=== PATIENT | male | born 1940 | race Caucasian/White ===

== ENCOUNTER 2016-03-20 09:58 | Emergency (ER) | payer MEDICARE, BC ==
[2016-03-20 10:23] LABS: #Basophils 0.1 thou/uL (0.0-0.2); #Eosinphils 0.6 thou/uL (0.0-0.7); #Lymphocytes 2.3 thou/uL (1.20-3.40); #Monocytes 1.3 thou/uL (0.11-0.59); #Neutrophils 9.1 thou/uL (1.40-6.50); %Basophils 0.7 % (0.0-1.0); %Eosinophils 4.2 % (0.0-10.0); %Lymphocytes 17.1 % (21.0-51.0); %Monocytes 9.7 % (0.0-10.0); %Neutrophils 68.2 % (42.0-75.0); Hemoglobin 14.7 g/dL (14.0-18.0); Mean Corpuscular HGB CONC 32.3 g/dL (32.0-36.0); Mean Corpuscular Hemoglobin 31.3 pg (27.0-31.0); Mean Corpuscular Volume 96.8 fl (80.0-94.0); Mean Platelet Volume 8.8 fL (7.4-10.4); Platelet Count 248 thou/uL (130-400); RBC Distribution Width 11.7 % (11.5-14.5); Red Blood Cell (RBC) Count 4.69 mill/uL (4.70-6.10); White Blood Cell (WBC) Count 13.4 thou/uL (4.8-10.8)
[2016-03-20] MEDS ORDERED: Lidocaine Viscous Sol 2% 15 ml UD Cup ONE (10:29)
[2016-03-20] MEDS ORDERED: Mag-Al Plus 1200 MG/1200 MG/120 MG/30 ML UDCUP ONE (10:29)
[2016-03-20] MEDS ORDERED: Furosemide 40 MG/4 ML VIAL ONE (10:29)
--- NOTE | 2016-03-20 10:43 | RAD ---
PORTABLE CHEST: Date: 03-20-16 Time: 10:22 a.m. History: Chest pain, shortness of breath. FINDINGS: Comparison made with the exam of 11-11-12. There are changes of median sternotomy. The heart size is borderline. There is pulmonary vascular congestion. No lobar consolidation, pneumothorax or large effusions are seen. IMPRESSION: Findings are suggestive of mild CHF. POS: [facility]
[2016-03-20 10:45] LABS: ALT (SGPT) 43 U/L (0-55); AST (SGOT) 26 U/L (5-34); Albumin 4.2 g/dL (3.4-4.8); Alkaline Phosphatase 121 U/L (40-150); Anion Gap 18 mmol/L (10-20); BUN (Urea Nitrogen) 15 mg/dL (8.4-25.7); Bilirubin, Total 0.7 mg/dL (0.2-1.2); Calc. Creatinine Clearance 0 mL/min (70-130); Carbon Dioxide 23 mmol/L (23-31); Chloride 100 mmol/L (98-107); Estimated GFR-MDRD 68; Globulin 3.1 g/dL (2.4-3.5); Glucose 125 mg/dL (83-110); Potassium 4.2 mmol/L (3.5-5.1); Protein, Total 7.3 g/dL (5.8-8.1); Sodium 137 mmol/L (136-145)
[2016-03-20 10:47] LABS: CKMB 2.4 ng/mL (0-6.6); Troponin I Less than 0.010 ng/mL (< 0.028)
--- NOTE | 2016-03-20 11:30 | ERRECORD ---
[facility] EMERGENCY RECORD HPI CHEST PAIN (10:12 SHAN) CHIEF COMPLAINT: Patient presents for evaluation of chest pain, ongoing. HISTORIAN: History provided by patient, patient relates shortness of breath yesterday, gone now, then vague central chest pain for about 90 minutes this am. QUALITY: Pain is dull in nature. SEVERITY: Maximum severity of symptoms mild, Currently symptoms are mild. TIME COURSE: Gradual onset of symptoms. ASSOCIATED WITH: No associated symptoms. EXACERBATED BY: Patient's condition exacerbated by nothing. RELIEVED BY: Patient's condition relieved by nothing. ROS (10:13 SHAN) CONSTITUTIONAL: Negative constitutional review of systems, Historian denies chills, denies fever. EYES: Negative eye review of systems. ENT: Negative ears, nose, throat review of systems. CARDIOVASCULAR: Negative cardiovascular review of systems, Historian relates dull chest pain, Historian denies palpitations. RESPIRATORY: Negative respiratory review of systems, Historian denies cough, denies shortness of breath. GI: Negative gastrointestinal review of systems, Historian denies abdominal pain, denies constipation, denies diarrhea. MUSCULOSKELETAL: Negative musculoskeletal review of systems. SKIN: Negative skin review of systems. NEUROLOGIC: Negative neurologic review of systems. ENDOCRINE: Negative endocrine review of systems. HEMO/LYMPHATIC: Normal hematologic/lymphatic system review. PSYCHIATRIC: Negative psychiatric review of systems. NOTES: All other ROS is negative except as listed in HPI. PAST MEDICAL HISTORY MEDICAL HISTORY: Past medical history includes cardiac history, myocardial infarction, Past medical history includes history of diabetes, Type II, Past medical history includes history of hyperlipidemia, high cholesterol. (11:03 YORDY) MALE SURGICAL HISTORY: Surgical history of coronary artery bypass graft surgery, three vessels. (11:03 YORDY) PSYCHIATRIC HISTORY: No previous psychiatric history, no previous inpatient psychiatric admissions. (11:03 YORDY) SOCIAL HISTORY: Patient denies alcohol use, Patient denies drug use, Patient has no smoking history. (11:03 YORDY) NOTES: I have reviewed and agree with the PMH/PSxH/FamHx/SocHx obtained by the nurse. (10:13 SHAN) KNOWN ALLERGIES &a-1R&a+25V*p+0X*q2327X*c152B*c15G*c2P*p-0X&a-25V&a+1RName: Rubens Tomlinson : M75 MedRec: [id number] AcctNum: [id number] Prepared: ThuMar 20, 2016 11:50 by Interface Page 1 of 4 pMD [facility] EMERGENCY RECORD Crestor: Reaction: Nausea, Severity: Mild CURRENT MEDICATIONS aspirin: TABLET : Strength - 81 mg : ORAL Patient Dose: 81 mg Oral once a day. (10:20 YORDY) lisinopril: TABLET : Strength - 20 mg : ORAL Patient Dose: 20 mg Oral once a day. (10:20 YORDY) atorvastatin: TABLET : Strength - 80 mg : ORAL Patient Dose: 80 mg Oral once a day (in the evening). (10:21 YORDY) meTOPROLOL tartrate: TABLET : Strength - 25 mg : ORAL Patient Dose: 25 mg Oral once a day. (10:22 YORDY) VITAL SIGNS VITAL SIGNS: BP: 147/59, Pulse: 52, Resp: 20, Pain: 1, O2 sat: 98 on Room Air, Time: 03/20/2016 10:03. (10:03 YORDY) BP: 143/57, Pulse: 61, Resp: 18, Pain: 0.5, O2 sat: 98 on Room Air, Time: 03/20/2016 10:36. (10:36 YORDY) BP: 143/67, Pulse: 58, Resp: 16, Pain: 0, O2 sat: 94 on Room Air, Time: 03/20/2016 11:04. (11:04 YORDY) Temp: 98.2 (Oral), Time: 03/20/2016 10:05. (10:05 YORDY) PHYSICAL EXAM (10:13 SHAN) CONSTITUTIONAL: Vital signs reviewed, Patient appears non toxic, Patient alert and oriented to person, place and time, Pt is in no apparent distress. HEAD: Head exam included findings of head atraumatic, normocephalic. EYES: Eye exam included findings of eyelids normal to inspection, Pupils equally round and reactive to light, Extraocular muscles intact. ENT: ENT exam normal, Nose exam normal, no nasal deformity, no bleeding from nares, Pharynx exam normal, Mouth exam normal, mucous membranes moist. NECK: Neck exam included findings of normal range of motion, Trachea midline. RESPIRATORY CHEST: Respiratory and chest exam normal, Breath sounds clear, No wheezing, No rales, Chest exam included findings of chest movement symmetrical, Chest expansion equal. CARDIOVASCULAR: Cardiovascular assessment normal, Cardiovascular exam included findings of heart rate being irregular rate and rhythm, Heart sounds normal. ABDOMEN MALE: Abdominal exam included findings of abdomen nontender, Bowel sounds normal, no mass, no pulsatile masses, no peritoneal signs, no rigidity, no guarding, no rebound. BACK: Back exam included findings of normal inspection, range of motion normal, no costovertebral angle tenderness. &a-1R&a+25V*p+0X*[id number]*c152B*c15G*c2P*p-0X&a-25V&a+1RName: Rubens Tomlinson : M75 MedRec: [id number] AcctNum: [id number] Prepared: [facility] Mar 20, 2016 11:50 by Interface Page 2 of 4 pMD [facility] EMERGENCY RECORD UPPER EXTREMITY: Upper extremity exam included findings of inspection normal, Range of motion normal. LOWER EXTREMITY: Lower extremity exam included findings of inspection normal, Range of motion normal, One plus edema in legs. NEURO: Neuro exam findings include patient oriented to person, place and time, Speech normal, no focal motor deficits, no focal sensory deficits. SKIN: Skin exam included findings of skin warm, dry, and normal in color. LYMPHATIC: Lymphatic exam normal. PSYCHIATRIC: Psychiatric exam included findings of patient oriented to person place and time, Normal affect. MEDICATION ADMINISTRATION SUMMARY Drug Name: fentaNYL (PF) intravenous, Dose Ordered: 100 mcg, Route: IV Push, Status: Canceled, Time: 10:28 03/20/2016, Drug Name: *Nitrostat sublingual, Dose Ordered: 0.4 mg, Route: Sublingual, Status: Canceled, Time: 10:28 03/20/2016, Drug Name: furosemide injection, Dose Ordered: 40 mg, Route: IV Push, Status: Given, Time: 10:35 03/20/2016, Drug Name: GI COCKTAIL, Dose Ordered: 40 mL, Route: Oral, Status: Given, Time: 10:32 03/20/2016, *Additional information available in notes, Detailed record available in Medication Service section. DOCTOR NOTES TEXT: Adult male with hx of diabetes, hypertension, prior mi and cabg; developed mild chest starting about 1 hr prior to arrival. Has 1 to 2 plus edema in legs; ekg and monitor show atrial flutter but with mildly bradycardic rate. Chest pain related by patient to be very mild. Already took his aspirin. 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 flutter was not there in the past. Discussed with Dr. Boateng in ER at [place] who will accept. Discussed with patient. Will transfer accordingly. At this time, pain is gone, breathing is better, has been urinating with the Lasix dose. Will need the flutter addressed. (11:15 SHAN) PATIENT PLAN: The patient requires a transfer and will be transferred, per patient request. (11:15 SHAN) DATA REVIEWED: Lab data reviewed, Xray data reviewed, Reviewed EKG. (11:15 SHAN) PROBLEM LIST No recorded problems DIAGNOSIS (11:18 SHAN) FINAL: PRIMARY: Atrial Flutter, ADDITIONAL: cad, hypertension, diabetes, chest pain--resolved., CHF, hx of cabg. PRESCRIPTION No recorded prescriptions &a-1R&a+25V*p+0X*[id number]*c152B*c15G*c2P*p-0X&a-25V&a+1RName: Rubens Tomlinson [place] [facility] [place] [id number] AcctNum: [id number] Prepared: ThuMar 20, 2016 11:50 by Interface Page 3 of 4 pMD [facility] EMERGENCY RECORD DISPOSITION PATIENT: Disposition Type: Transfer, Disposition: Transfer to [facility]. (11:18 BISI) Patient left the department. (11:43 YORDY) Mcrae: YORDY=EL Pineda, Twyla MATHEWS=MD Sheba, Andre &a-1R&a+25V*p+0X*[id number]*c152B*c15G*c2P*p-0X&a-25V&a+1RName: Rubens Tomlinson: M75 MedRec: [id number] AcctNum: [id number] Prepared: ThuMar 20, 2016 11:50 by Interface Page 4 of 4 pMD [facility]
--- NOTE | 2016-03-20 11:33 | PICIS ---
[facility] EMERGENCY RECORD TRIAGE (10:01 YORDY) TRIAGE NOTES: SOB and chest pain since yesterday. (10:01 YORDY) PATIENT: NAME: Rubens Tomlinson, AGE: 75, GENDER: male, : [id number], TIME OF GREET: ThuMar 20, 2016 09:59, PREFERRED LANGUAGE: French, ETHNICITY: Not or , ECODE BILLING MAP: [facility], SSN: [id number], Zip Code: [address], KG WEIGHT: 95.25, PHONE: CELL, , , PERSON ID: [id number], PCP: MD Hercules Grover. (10: YORDY) COMPLAINT: SOB/CHEST PAIN/TIGHT IN CHEST. (10:01 YORDY) ADMISSION: URGENCY: 2 Emergent, ADMISSION SOURCE: Home, TRANSPORT: Walk-in, BED: ED -01. 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 (11:03 YORDY) PAIN: Location tightness in the chest. (11:03 YORDY) SIRS SCORING: Heart Rate 55-109 (0), Temp range 96.8-101.1 (0), respiratory rate 12-24 (0). (11:03 YORDY) TRIAGE SCREENING: Patient denies suicidal ideation, Patient denies presence of domestic violence. (11:03 YORDY) PROVIDERS: TRIAGE NURSE: Twyla Pineda RN. (10:01 YORDY) PREVIOUS VISIT ALLERGIES: Crestor. (10: YORDY) Crestor. (11:03 YORDY) KNOWN ALLERGIES Crestor: Reaction: Nausea, Severity: Mild CURRENT MEDICATIONS aspirin: TABLET : Strength - 81 mg : ORAL Patient Dose: 81 mg Oral once a day. (10:20 YORDY) lisinopril: TABLET : Strength - 20 mg : ORAL Patient Dose: 20 mg Oral once a day. (10:20 YORDY) atorvastatin: TABLET : Strength - 80 mg : ORAL Patient Dose: 80 mg Oral once a day (in the evening). (10:21 YORDY) meTOPROLOL tartrate: TABLET : Strength - 25 mg : ORAL Patient Dose: 25 mg Oral once a day. (10:22 YORDY) VITAL SIGNS VITAL SIGNS: BP: 147/59, Pulse: 52, Resp: 20, Pain: 1, O2 sat: 98 on Room Air, Time: 03/20/2016 10:03. (10:03 YORDY) BP: 143/57, Pulse: 61, Resp: 18, Pain: 0.5, O2 sat: 98 on Room Air, Time: 03/20/2016 10:36. (10:36 YORDY) BP: 143/67, Pulse: 58, Resp: 16, Pain: 0, O2 sat: 94 on Room Air, Time: 03/20/2016 11:04. (11:04 YORDY) Temp: 98.2 (Oral), Time: 03/20/2016 10:05. (10:05 YORDY) &a-1R&a+25V*p+0X*l8005B*c152B*c15G*c2P*p-0X&a-25V&a+1RName: Rubens Tomlinson : 9 M75 MedRec: [id number] AcctNum: [id number] Prepared: Cecile Mar 20, 2016 11:51 by Interface Page 1 of 10 pMD [facility] EMERGENCY RECORD NURSING ASSESSMENT: CARDIOVASCULAR (10:10 YORDY) CONSTITUTIONAL: Patient arrives ambulatory, Gait steady, History obtained from patient, Patient appears comfortable, Patient cooperative, Patient alert, Oriented to person, place and time, Skin warm, Skin dry, Skin normal in color, Mucous membranes pink, Mucous membranes moist, Patient is well-groomed, Patient arrived to ED come shortness of breath that started 2-3 days ago and 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 PAIN: substernal. CARDIOVASCULAR: Cardiovascular assessment findings include heart rate normal, Heart rhythm, atrial flutter, Heart sounds normal. RESPIRATORY/CHEST: Breath sounds clear, Respiratory assessment findings include respiratory effort easy, Respirations regular, Conversing normally, Neck and chest exam findings include trachea midline, Chest expansion equal, Chest movement symmetrical. SAFETY: Side rails up, Cart/Stretcher in lowest position, Call light within reach, Hospital ID band on. NURSING ASSESSMENT: FALL RISK (11:10 YORDY) FALL RISK: Fall risk assessment findings include: no history of falls (0), No bed rest greater than 2 days (0), No use of level of consciousness altering agents with mentation or cognitive changes (0), No change in blood pressure (0), No sensory deficits (0), No impaired mobility (0), No neurologic diagnosis (0), No elimination problems (0), No confusion (0), Total score 0. NURSING ASSESSMENT: SKIN (11:10 YORDY) SKIN: Skin assessment findings include skin warm, Skin dry, Skin normal in color. JOMAR SCALE: (4) Sensory perception has no impairment, (4) Skin is rarely moist, (4) Patient walks frequently, (4) No mobility limitations, (3) Adequate nutrition, (3) Patient has no apparent problem moving, Jomar Risk Total: 22. SAFETY: Side rails up, Cart/Stretcher in lowest position, Call light within reach, Hospital ID band on. NURSING PROCEDURE: SALESPERSON AUTOMOBILES (10:03 YORDY) PATIENT IDENTIFIER: Patient actively involved in identification process, Patient's identity verified by patient stating name, Patient's identity verified by patient stating date, Patient's identity verified by hospital ID bracelet. SALESPERSON AUTOMOBILES: Cardiac monitoring indicated for complaint of chest pain, Patient placed on tipple tender, Patient placed on non-invasive blood pressure monitor, with disposable blood pressure cuff applied, Patient placed on continuous pulse oximetry, Adult/pediatric oxisensor applied, Oxygen saturation 98%. SAFETY: Side rails up, Cart/Stretcher in lowest position, Call light within reach, Hospital ID band on. &a-1R&a+25V*p+0X*s2736J*c152B*c15G*c2P*p-0X&a-25V&a+1RName: Rubens Tomlinson : M75 MedRec: [id number] AcctNum: [id number] Prepared: Cecile Mar 20, 2016 11:51 by Interface Page 2 of 10 D [facility] EMERGENCY RECORD NURSING PROCEDURE: EKG CHART (10:05 YORDY) PATIENT IDENTIFIER: Patient actively involved in identification process, Patient's identity verified by patient stating name, Patient's identity verified by patient stating date, Patient's identity verified by hospital ID bracelet. EKG: EKG indicated for complaint of chest pain, 12 lead EKG performed on the left chest, done by EL Wakefield, first EKG. FOLLOW-UP: After procedure, EKG for interpretation given to Dr. Scruggs. SAFETY: Side rails up, Cart/Stretcher in lowest position, Call light within reach, Hospital ID band on. NURSING PROCEDURE: IV (10:06 YORDY) PATIENT IDENITIFIER: Patient actively involved in identification process, Patient's identity verified by patient stating name, Patient's identity verified by patient stating date, Patient's identity verified by hospital ID bracelet. IV SITE 1: IV therapy indicated for hydration, IV therapy indicated for medication administration, IV established, to the left wrist, using a 20 gauge catheter, Saline lock established, Flushed with normal saline (mls): 10, Labs drawn at time of placement, labeled in the presence of the patient and sent to lab. FOLLOW-UP SITE 1: After procedure, sterile transparent dressing applied, After procedure, no drainage at IV site, After procedure, no swelling at IV site, After procedure, no redness at IV site. SAFETY: Side rails up, Cart/Stretcher in lowest position, Call light within reach, Hospital ID band on. NURSING PROCEDURE: TRANSFER (11:40 YORDY) TRANSFER: Reason for transfer need for specialized care, Diagnosis: Aflutter, Accepting institution: [facility], Accepting physician: Cortney, Referring physician: Sheba, Transported by non-urgent ambulance, accompanied by emergency medical services personnel, Copy of patient record prepared for receiving facility, Copy of diagnostic studies, Patient consent for transfer signed, Family member contacted, girlfriend at bedside. BELONGINGS: Belongings and valuables with patient upon arrival to the Emergency Department include:, Belongings and valuables with patient at time of discharge include:, Belongings remain with patient, Valuables remain with patient. SAFETY: Side rails up, Cart/Stretcher in lowest position, Family at bedside, Call light within reach, Hospital ID band on. ORDER DETAILS Order Name: B type Natriuretic Peptide, Status: Active, Time: 10:10 03/20/2016, User: BISI, - Ordered for: MD Scruggs Stanley, - Entered by: MD Scruggs Stanley - [facility] Mar 20, 2016 10:10, - Quantity: 1, Order Name: SALESPERSON AUTOMOBILES ED, Status: Done, Time: 10:17 03/20/2016, &a-1R&a+25V*p+0X*q5319V*c152B*c15G*c2P*p-0X&a-25V&a+1RName: Rubens Tomlinson : M75 MedRec: [id number] AcctNum: [id number] Prepared: ThuMar 20, 2016 11:51 by Interface Page 3 of 10 pMD [facility] EMERGENCY RECORD User: YORDY, - Ordered for: MD Scruggs Stanley, - Entered by: MD Scruggs Stanley - ThuMar 20, 2016 10:10, - Quantity: 1, Order Name: Cardiac Profile w/CKMB & Troponin - I, Status: Active, Time: 10:10 03/20/2016, User: BISI, - Ordered for: MD Scruggs Stanley, - Entered by: MD Scruggs Stanley - ThuMar 20, 2016 10:10, - Quantity: 1, Order Name: CBC with Differential, Status: Active, Time: 10:10 03/20/2016, User: BISI, - Ordered for: MD Scruggs Stanley, - Entered by: MD Scruggs Stanley - ThuMar 20, 2016 10:10, - Quantity: 1, Order Name: Comprehensive Metabolic Panel, Status: Active, Time: 10:10 03/20/2016, User: BISI, - Ordered for: MD Scruggs Stanley, - Entered by: MD Scruggs Stanley - ThuMar 20, 2016 10:10, - Quantity: 1, Order Name: D-Dimer (Quantitative), Status: Active, Time: 10:10 03/20/2016, User: BISI, - Ordered for: MD Scruggs Stanley, - Entered by: MD Scruggs Stanley - ThuMar 20, 2016 10:10, - Quantity: 1, Order Name: EKG 12 Lead in Emergency Room, Status: Active, Time: 10:10 03/20/2016, User: BISI, - Ordered for: MD Scruggs Stanley, - Entered by: MD Scruggs Stanley - ThuMar 20, 2016 10:10, - Quantity: 1, Order Name: ERRT Oxygen Usage ER, Status: Active, Time: 10:15 03/20/2016, User: BISI, - Ordered for: MD Scruggs Stanley, - Entered by: MD Scruggs Stanley - Cecile Mar 20, 2016 10:15, - Quantity: 1, Order Name: SALINE LOCK, Status: Done, Time: 10:17 03/20/2016, User: YORDY, - Ordered for: MD Scruggs Stanley, - Entered by: MD Scruggs Stanley - Cecile Mar 20, 2016 10:10, - Quantity: 1, Order Name: XR Chest 1 View Portable, Status: Active, Time: 10:10 03/20/2016, User: BISI, - Ordered for: MD Scruggs Stanley, - Entered by: MD Scruggs Stanley - Cecile Mar 20, 2016 10:10, - Quantity: 1. MEDICATION ADMINISTRATION SUMMARY Drug Name: fentaNYL (PF) intravenous, Dose Ordered: 100 mcg, Route: IV Push, Status: Canceled, Time: 10:28 03/20/2016, Drug Name: *Nitrostat sublingual, Dose Ordered: 0.4 mg, Route: Sublingual, Status: Canceled, Time: 10:28 03/20/2016, &a-1R&a+25V*p+0X*u8498E*c152B*c15G*c2P*p-0X&a-25V&a+1RName: Rubens Tomlinson : M75 MedRec: [id number] AcctNum: [id number] Prepared: ThuMar 20, 2016 11:51 by Interface Page 4 of 10 pMD [facility] EMERGENCY RECORD Drug Name: furosemide injection, Dose Ordered: 40 mg, Route: IV Push, Status: Given, Time: 10:35 03/20/2016, Drug Name: GI COCKTAIL, Dose Ordered: 40 mL, Route: Oral, Status: Given, Time: 10:32 03/20/2016, *Additional information available in notes, Detailed record available in Medication Service section. MEDICATION SERVICE furosemide injection: Order: furosemide injection (furosemide) - Dose: 40 mg : IV Push Schedule: Now Ordered by: Andre Scruggs MD Entered by: Andre Scruggs MD [facility] Mar 20, 2016 10:19 , Acknowledged by: Twyla Pineda RN [facility] Mar 20, 2016 10:23 Documented as given by: Twyla Pineda RN [facility] Mar 20, 2016 10:35 Patient, Medication, Dose, Route and Time verified prior to administration. IV SITE #1 IVP, initial medication, Slowly, Catheter placement confirmed via flush prior to administration, IV site without signs or symptoms of infiltration during medication administration, No swelling during administration, No drainage during administration, IV flushed after administration, Correct patient, time, route, dose and medication confirmed prior to administration, Patient advised of actions and side-effects prior to administration, Allergies confirmed and medications reviewed prior to administration, Patient in position of comfort, Side rails up, Cart in lowest position. GI COCKTAIL: Order: GI COCKTAIL - Dose: 40 mL : Oral Lidocaine Viscous (lidocaine HCl) [10 mL] MAG-AL (magnesium hydroxide/aluminum hydroxide) [30 mL] Ordered by: Andre Scruggs MD Entered by: Andre Scruggs MD [facility] Mar 20, 2016 10:18 , Acknowledged by: Twyla Pineda RN [facility] Mar 20, 2016 10:19 Documented as given by: Twyla Pineda RN [facility] Mar 20, 2016 10:32 Patient, Medication, Dose, Route and Time verified prior to administration. Site: Medication administered P.O., Correct patient, time, route, dose and medication confirmed prior to administration, Patient advised of actions and side-effects prior to administration, Allergies confirmed and medications reviewed prior to administration, Patient in position of comfort, Side rails up, Cart in lowest position. (CANCELED) fentaNYL (PF) intravenous: Order: fentaNYL (PF) intravenous (fentanyl citrate/preservative free) - Dose: 100 mcg : IV Push Schedule: Now Ordered by: Andre Scruggs MD Entered by: Andre Scruggs MD [facility] Mar 20, 2016 10:20 , Acknowledged by: Twyla Pineda RN [facility] Mar 20, 2016 10:23 Canceled by: Andre Scruggs MD. [facility] Mar 20, 2016 10:28 Cancel reason: Change in medication plan. (CANCELED) Nitrostat sublingual: Order: Nitrostat sublingual (nitroglycerin) - Dose: 0.4 mg : Sublingual &a-1R&a+25V*p+0X*y9921I*c152B*c15G*c2P*p-0X&a-25V&a+1RName: Rubens Tomlinson : M75 MedRec: [id number] AcctNum: [id number] Prepared: ThuMar 20, 2016 11:51 by Interface Page 5 of 10 pMD [facility] EMERGENCY RECORD Schedule: Now Notes: may repeat up to 2 times if needed for chest pain Ordered by: Andre Scruggs MD Entered by: Andre Scruggs MD [facility] Mar 20, 2016 10:17 , Acknowledged by: Twyla Pineda RN [facility] Mar 20, 2016 10:19 Canceled by: Andre Scruggs MD. [facility] Mar 20, 2016 10:28 Cancel reason: Change in medication plan:very minimal symptoms. HPI CHEST PAIN (10:12 SHAN) CHIEF COMPLAINT: Patient presents for evaluation of chest pain, ongoing. HISTORIAN: History provided by patient, patient relates shortness of breath yesterday, gone now, then vague central chest pain for about 90 minutes this am. QUALITY: Pain is dull in nature. SEVERITY: Maximum severity of symptoms mild, Currently symptoms are mild. TIME COURSE: Gradual onset of symptoms. ASSOCIATED WITH: No associated symptoms. EXACERBATED BY: Patient's condition exacerbated by nothing. RELIEVED BY: Patient's condition relieved by nothing. ROS (10:13 SHAN) CONSTITUTIONAL: Negative constitutional review of systems, Historian denies chills, denies fever. EYES: Negative eye review of systems. ENT: Negative ears, nose, throat review of systems. CARDIOVASCULAR: Negative cardiovascular review of systems, Historian relates dull chest pain, Historian denies palpitations. RESPIRATORY: Negative respiratory review of systems, Historian denies cough, denies shortness of breath. GI: Negative gastrointestinal review of systems, Historian denies abdominal pain, denies constipation, denies diarrhea. MUSCULOSKELETAL: Negative musculoskeletal review of systems. SKIN: Negative skin review of systems. NEUROLOGIC: Negative neurologic review of systems. ENDOCRINE: Negative endocrine review of systems. HEMO/LYMPHATIC: Normal hematologic/lymphatic system review. PSYCHIATRIC: Negative psychiatric review of systems. NOTES: All other ROS is negative except as listed in HPI. PAST MEDICAL HISTORY MEDICAL HISTORY: Past medical history includes cardiac history, myocardial infarction, Past medical history includes history of diabetes, Type II, Past medical history includes history of hyperlipidemia, high cholesterol. (11:03 YORDY) MALE SURGICAL HISTORY: Surgical history of coronary artery &a-1R&a+25V*p+0X*v4412U*c152B*c15G*c2P*p-0X&a-25V&a+1RName: Rubens Tomlinson : M75 MedRec: [id number] AcctNum: [id number] Prepared: Cecile Mar 20, 2016 11:51 by Interface Page 6 of 10 pMD [facility] EMERGENCY RECORD bypass graft surgery, three vessels. (11:03 YORDY) PSYCHIATRIC HISTORY: No previous psychiatric history, no previous inpatient psychiatric admissions. (11:03 YORDY) SOCIAL HISTORY: Patient denies alcohol use, Patient denies drug use, Patient has no smoking history. (11:03 YORDY) NOTES: I have reviewed and agree with the PMH/PSxH/FamHx/SocHx obtained by the nurse. (10:13 SHAN) PHYSICAL EXAM (10:13 SHAN) CONSTITUTIONAL: Vital signs reviewed, Patient appears non toxic, Patient alert and oriented to person, place and time, Pt is in no apparent distress. HEAD: Head exam included findings of head atraumatic, normocephalic. EYES: Eye exam included findings of eyelids normal to inspection, Pupils equally round and reactive to light, Extraocular muscles intact. ENT: ENT exam normal, Nose exam normal, no nasal deformity, no bleeding from nares, Pharynx exam normal, Mouth exam normal, mucous membranes moist. NECK: Neck exam included findings of normal range of motion, Trachea midline. RESPIRATORY CHEST: Respiratory and chest exam normal, Breath sounds clear, No wheezing, No rales, Chest exam included findings of chest movement symmetrical, Chest expansion equal. CARDIOVASCULAR: Cardiovascular assessment normal, Cardiovascular exam included findings of heart rate being irregular rate and rhythm, Heart sounds normal. ABDOMEN MALE: Abdominal exam included findings of abdomen nontender, Bowel sounds normal, no mass, no pulsatile masses, no peritoneal signs, no rigidity, no guarding, no rebound. BACK: Back exam included findings of normal inspection, range of motion normal, no costovertebral angle tenderness. UPPER EXTREMITY: Upper extremity exam included findings of inspection normal, Range of motion normal. LOWER EXTREMITY: Lower extremity exam included findings of inspection normal, Range of motion normal, One plus edema in legs. NEURO: Neuro exam findings include patient oriented to person, place and time, Speech normal, no focal motor deficits, no focal sensory deficits. SKIN: Skin exam included findings of skin warm, dry, and normal in color. LYMPHATIC: Lymphatic exam normal. PSYCHIATRIC: Psychiatric exam included findings of patient oriented to person place and time, Normal affect. EVENTS TRANSFER: Triage to Emergency Main ED -01. (ThuMar 20, 2016 10:01 YORDY) Removed from Emergency Main ED -01. (11:43 YORDY) &a-1R&a+25V*p+0X*n9373O*c152B*c15G*c2P*p-0X&a-25V&a+1RName: Rubens Tomlinson : M75 MedRec: [id number] AcctNum: [id number] Prepared: ThuMar 20, 2016 11:51 by Interface Page 7 of 10 pMD [facility] EMERGENCY RECORD DOCTOR NOTES TEXT: Adult male with hx of diabetes, hypertension, prior mi and cabg; developed mild chest starting about 1 hr prior to arrival. Has 1 to 2 plus edema in legs; ekg and monitor show atrial flutter but with mildly bradycardic rate. Chest pain related by patient to be very mild. Already took his aspirin. (10:29 SHAN) Discuss with Dr. Patel, tube tester, sabine bland was not there in the past. Discussed with Dr. Boateng in ER at [place] who will accept. Discussed with patient. Will transfer accordingly. At this time, pain is gone, breathing is better, has been urinating with the Lasix dose. Will need the flutter addressed. (11:15 SHAN) PATIENT PLAN: The patient requires a transfer and will be transferred, per patient request. (11:15 SHAN) DATA REVIEWED: Lab data reviewed, Xray data reviewed, Reviewed EKG. (11:15 SHAN) PROBLEM LIST No recorded problems DIAGNOSIS (11:18 SHAN) FINAL: PRIMARY: Atrial Flutter, ADDITIONAL: cad, hypertension, diabetes, chest pain--resolved., CHF, hx of cabg. DISPOSITION PATIENT: Disposition Type: Transfer, Disposition: Transfer to [facility]. (11:18 SHAN) Patient left the department. (11:43 YORDY) PRESCRIPTION No recorded prescriptions IMAGING *EKG: Image captured from scanner. (11:22 JPAR) *MEMORANDUM OF TRANSFER: Image captured from scanner. (11:36 LWAL) EMS TRANSPORT ORDERS: Image captured from scanner. (11:36 LWAL) CONSENTS: Image captured from scanner. (11:36 LWAL) TRANSFER QI WORKSHEET: Image captured from scanner. (11:36 LWAL) Page 2 added. Image captured from scanner. (11:37 LWAL) *SUPPLY CHARGE SHEET: Image captured from scanner. (11:42 YORDY) ADMIN (11:18 SHAN) DIGITAL SIGNATURE: MD Scruggs Stanley. RESULTS RADIOLOGY: XR Chest 1 View Portable Observe DT: ThuMar 20, 2016 10:12, CXRP PORTABLE CHEST: &a-1R&a+25V*p+0X*x6472A*c152B*c15G*c2P*p-0X&a-25V&a+1RName: Rubens Tomlinson : M75 MedRec: [id number] AcctNum: [id number] Prepared: ThuMar 20, 2016 11:51 by Interface Page 8 of 10 D [facility] EMERGENCY RECORD Date: 03-20-16 Time: 10:22 a.m. History: Chest pain, shortness of breath. FINDINGS: Comparison made with the exam of 11-11-12. There are changes of median sternotomy. The heart size is borderline. There is pulmonary vascular congestion. No lobar consolidation, pneumothorax or large effusions are seen. IMPRESSION: Findings are suggestive of mild CHF. POS: [facility] . (10:51 BISI) LABORATORY: CBC with Differential Collection DT: ThuMar 20, 2016 10:18, *White Blood Cell (WBC) Count 13.4 - H thou/uL, Range (4.8-10.8), *Red Blood Cell (RBC) Count 4.69 - L mill/uL, Range (4.70-6.10), Hemoglobin 14.7 g/dL, Range (14.0-18.0), Hematocrit 45.4 %, Range (42.0-52.0), *Mean Corpuscular Volume 96.8 - H fl, Range (80.0-94.0), *Mean Corpuscular Hemoglobin 31.3 - H pg, Range (27.0-31.0), Mean Corpuscular HGB CONC 32.3 g/dL, Range (32.0-36.0), RBC Distribution Width 11.7 %, Range (11.5-14.5), Platelet Count 248 thou/uL, Range (130-400), Mean Platelet Volume 8.8 fL, Range (7.4-10.4), %Neutrophils 68.2 %, Range (42.0-75.0), *%Lymphocytes 17.1 - L %, Range (21.0-51.0), %Monocytes 9.7 %, Range (0.0-10.0), %Eosinophils 4.2 %, Range (0.0-10.0), %Basophils 0.7 %, Range (0.0-1.0), *#Neutrophils 9.1 - H thou/uL, Range (1.40-6.50), #Lymphocytes 2.3 thou/uL, Range (1.20-3.40), *#Monocytes 1.3 - H thou/uL, Range (0.11-0.59), #Eosinphils 0.6 thou/uL, Range (0.0-0.7), #Basophils 0.1 thou/uL, Range (0.0-0.2). (10:34 BISI) D-Dimer (Quantitative) Collection DT: ThuMar 20, 2016 10:18, D-Dimer Test 0.29 *mcg/mL, Range (0.27-0.43), * Reference Range Units: mcg/mL of fibrinogen equivalent, units(FEU) Based upon a retrospective study of [facility] patients in June 2005, a result of Less than 0.44 mcg/mL FEU is, predictive of the absence of a DVT or PE. . (10:42 BISI) Comprehensive Metabolic Panel Collection DT: ThuMar 20, 2016 10:18, &a-1R&a+25V*p+0X*n5171A*c152B*c15G*c2P*p-0X&a-25V&a+1RName: Rubens Tomlinson : M75 MedRec: [id number] AcctNum: [id number] Prepared: [facility] Mar 20, 2016 11:51 by Interface Page 9 of 10 pMD [facility] EMERGENCY RECORD Sodium 137 mmol/L, Range (136-145), Potassium 4.2 mmol/L, Range (3.5-5.1), Chloride 100 mmol/L, Range (98-107), Carbon Dioxide 23 mmol/L, Range (23-31), Anion Gap 18 mmol/L, Range (10-20), BUN (Urea Nitrogen) 15 mg/dL, Range (8.4-25.7), Creatinine 1.06 mg/dL, Range (0.7-1.3), Estimated GFR-MDRD 68 , Reference Range for Estimated GFR: Greater than 90, mL/min/1.73 m2 NOTE: The MDRD equation has not been validated for use, with the elderly (over 70 years of age), women, patients with, serious comorbid condition or persons with extremes of body size, muscle, mass, or nutritional status. , *Glucose 125 - H mg/dL, Range (83-110), Calcium 9.0 mg/dL, Range (7.8-10.44), Bilirubin, Total 0.7 mg/dL, Range (0.2-1.2), Protein, Total 7.3 g/dL, Range (5.8-8.1), NOTE: Plasma values are generally 0.3 to 0.5 g/dL higher than serum values, due to the presence of fibrinogen. , Albumin 4.2 g/dL, Range (3.4-4.8), Globulin 3.1 g/dL, Range (2.4-3.5), Alb/Glob Ratio 1.4 g/dL, Range (1.2-2.2), Alkaline Phosphatase 121 U/L, Range (40-150), AST (SGOT) 26 U/L, Range (5-34), ALT (SGPT) 43 U/L, Range (0-55). (10:50 BISI) Cardiac Profile w/CKMB & TropI Collection DT: ThuMar 20, 2016 10:18, CKMB 2.4 ng/mL, Range (0-6.6), Troponin I Less than 0.010 ng/mL, Range (< 0.028), Reference Range , 0.00 - 0.028 ng/mL Negative 0.029 - 0.29 ng/mL , Indeterminate Greater or Equal to 0.3 ng/mL Strongly suggests GA , . (10:50 BISI) B type Natriuretic Peptide Collection DT: ThuMar 20, 2016 10:18, *B type Natriuretic Peptide 151.2 - H pg/mL, Range (0-100). (10:58 BISI) Mcrae: YORDY=EL Pineda, Twyla BERNARD=ACSSIE Catalan Julia LWAL=EL Landeros, Nieves MATHEWS=MD Sheba, Andre &a-1R&a+25V*p+0X*k3741U*c152B*c15G*c2P*p-0X&a-25V&a+1RName: Rubens Tomlinson : M75 MedRec: [id number] AcctNum: [id number] Prepared: ThuMar 20, 2016 11:51 by Interface Page 10 of 10 pMD MTDD
== END 2016-03-20 11:38 | disposition short-term general hospital (02) ==
LOC: MADERS 09:58
DX: I48.92 Unspecified atrial flutter (principal); I25.10 Atherosclerotic heart disease of native coronary artery without angina pectoris; E11.9 Type 2 diabetes mellitus without complications; E78.5 Hyperlipidemia, unspecified; E78.00 Pure hypercholesterolemia, unspecified; I25.2 Old myocardial infarction; I11.0 Hypertensive heart disease with heart failure; I50.9 Heart failure, unspecified; Z79.82 Long term (current) use of aspirin; Z79.899 Other long term (current) drug therapy; Z95.1 Presence of aortocoronary bypass graft
CPT/HCPCS: 71010; 80053; 82553; 83880; 84484; 85025; 85379; 93005; 96374; J1940

== ENCOUNTER 2016-04-03 13:55 | Outpatient (CLI) | payer MEDICARE, BC ==
[2016-04-03 14:22] LABS: Hemoglobin 13.8 g/dL (14.0-18.0); Mean Corpuscular HGB CONC 33.5 g/dL (32.0-36.0); Mean Corpuscular Volume 95.7 fl (80.0-94.0); Mean Platelet Volume 7.4 fL (7.4-10.4); Platelet Count 309 thou/uL (130-400); RBC Distribution Width 11.5 % (11.5-14.5); Red Blood Cell (RBC) Count 4.31 mill/uL (4.70-6.10); White Blood Cell (WBC) Count 9.3 thou/uL (4.8-10.8)
[2016-04-03 14:26] LABS: INR-International Normal Ratio 1.1; Prothrombin Time 14.8 SEC (12.0-14.7)
[2016-04-03 14:27] LABS: PTT 35.3 SEC (22.9-36.1)
[2016-04-03 14:34] LABS: Anion Gap 15 mmol/L (10-20); BUN (Urea Nitrogen) 15 mg/dL (8.4-25.7); Calc. Creatinine Clearance 0 mL/min (70-130); Calcium 8.9 mg/dL (7.8-10.44); Carbon Dioxide 25 mmol/L (23-31); Chloride 103 mmol/L (98-107); Estimated GFR-MDRD 70; Glucose 206 mg/dL (83-110); Sodium 139 mmol/L (136-145)
== END 2016-04-03 13:56 | disposition home or self-care (01) ==
LOC: MADLAB 13:55
PROVIDERS: ATTEND Internal Medicine Cardiovascular Disease
DX: Z01.818 Encounter for other preprocedural examination (principal); I48.3 Typical atrial flutter
CPT/HCPCS: 36415; 80048; 85027; 85610; 85730

== ENCOUNTER 2016-04-22 05:24 | Outpatient (CLI) | payer MEDICARE, BC ==
[2016-04-22 05:45] LABS: #Basophils 0.1 thou/uL (0.0-0.2); #Eosinphils 0.7 thou/uL (0.0-0.7); #Lymphocytes 2.3 thou/uL (1.20-3.40); #Monocytes 0.7 thou/uL (0.11-0.59); #Neutrophils 5.2 thou/uL (1.40-6.50); %Basophils 1.3 % (0.0-1.0); %Eosinophils 7.5 % (0.0-10.0); %Lymphocytes 25.4 % (21.0-51.0); %Monocytes 7.7 % (0.0-10.0); %Neutrophils 58.1 % (42.0-75.0); Hemoglobin 14.8 g/dL (14.0-18.0); Mean Corpuscular HGB CONC 33.5 g/dL (32.0-36.0); Mean Corpuscular Hemoglobin 31.9 pg (27.0-31.0); Mean Corpuscular Volume 95.2 fl (80.0-94.0); Mean Platelet Volume 7.8 fL (7.4-10.4); Platelet Count 232 thou/uL (130-400); RBC Distribution Width 12.1 % (11.5-14.5); Red Blood Cell (RBC) Count 4.62 mill/uL (4.70-6.10)
[2016-04-22 05:58] LABS: Hemoglobin A1c 6.6 % (4.0-6.0)
[2016-04-22 06:06] LABS: ALT (SGPT) 38 U/L (0-55); AST (SGOT) 24 U/L (5-34); Albumin 4.1 g/dL (3.4-4.8); Alkaline Phosphatase 87 U/L (40-150); Anion Gap 14 mmol/L (10-20); BUN (Urea Nitrogen) 14 mg/dL (8.4-25.7); Bilirubin, Direct 0.2 mg/dL (0.1-0.3); Bilirubin, Total 0.6 mg/dL (0.2-1.2); Calc. Creatinine Clearance 0 mL/min (70-130); Carbon Dioxide 28 mmol/L (23-31); Cardiac Risk 3.2 (Less than 4.5); Chloride 100 mmol/L (98-107); Cholesterol 160 mg/dL (< 200 Desired); Estimated GFR-MDRD 84; Glucose 138 mg/dL (83-110); HDL Cholesterol 50 mg/dL (>60 Neg Risk); LDL Cholesterol, Calculated 94 mg/dL; Potassium 4.9 mmol/L (3.5-5.1); Protein, Total 6.7 g/dL (5.8-8.1); Sodium 137 mmol/L (136-145); Triglycerides 82 mg/dL (Less than 150)
== END 2016-04-22 05:25 | disposition home or self-care (01) ==
LOC: MADLAB 05:24
PROVIDERS: ATTEND Family Medicine
DX: I25.10 Atherosclerotic heart disease of native coronary artery without angina pectoris (principal); I48.92 Unspecified atrial flutter; E11.9 Type 2 diabetes mellitus without complications
CPT/HCPCS: 36415; 80048; 80061; 80076; 83036; 85025; G0103

== ENCOUNTER 2016-07-22 05:43 | Outpatient (CLI) | payer MEDICARE, BC ==
[2016-07-22 06:48] LABS: #Basophils 0.1 thou/uL (0.0-0.2); #Eosinphils 0.5 thou/uL (0.0-0.7); #Lymphocytes 2.1 thou/uL (1.20-3.40); #Monocytes 0.7 thou/uL (0.11-0.59); #Neutrophils 5.1 thou/uL (1.40-6.50); %Basophils 1.4 % (0.0-1.0); %Eosinophils 6.4 % (0.0-10.0); %Lymphocytes 24.6 % (21.0-51.0); %Monocytes 7.7 % (0.0-10.0); %Neutrophils 59.9 % (42.0-75.0); Hemoglobin 16.1 g/dL (14.0-18.0); Mean Corpuscular HGB CONC 33.6 g/dL (32.0-36.0); Mean Corpuscular Hemoglobin 31.6 pg (27.0-31.0); Mean Platelet Volume 7.4 fL (7.4-10.4); Platelet Count 214 thou/uL (130-400); Red Blood Cell (RBC) Count 5.09 mill/uL (4.70-6.10); White Blood Cell (WBC) Count 8.5 thou/uL (4.8-10.8)
[2016-07-22 07:00] LABS: Hemoglobin A1c 6.9 % (4.0-6.0)
[2016-07-22 07:02] LABS: ALT (SGPT) 36 U/L (8-55); AST (SGOT) 22 U/L (5-34); Albumin 3.9 g/dL (3.4-4.8); Alkaline Phosphatase 78 U/L (40-150); Anion Gap 13 mmol/L (10-20); BUN (Urea Nitrogen) 15 mg/dL (8.4-25.7); Bilirubin, Direct 0.3 mg/dL (0.1-0.3); Bilirubin, Total 0.6 mg/dL (0.2-1.2); Calc. Creatinine Clearance 0 mL/min (70-130); Carbon Dioxide 25 mmol/L (23-31); Chloride 105 mmol/L (98-107); Cholesterol 152 mg/dl (< 200 Desired); Estimated GFR-MDRD 76; Glucose 155 mg/dL (83-110); HDL Cholesterol 50 mg/dL (>60 Neg Risk); LDL Cholesterol, Calculated 84 mg/dL; Potassium 4.3 mmol/L (3.5-5.1); Protein, Total 6.7 g/dL (5.8-8.1); Sodium 139 mmol/L (136-145); Triglycerides 88 mg/dL (Less than 150)
== END 2016-07-22 05:44 | disposition home or self-care (01) ==
LOC: MADLABBHPM 05:43
PROVIDERS: ATTEND Family Medicine
DX: E11.9 Type 2 diabetes mellitus without complications (principal); E78.00 Pure hypercholesterolemia, unspecified; I10 Essential (primary) hypertension
CPT/HCPCS: 80048; 80061; 80076; 83036; 85025

== ENCOUNTER 2016-11-03 05:44 | Outpatient (CLI) | payer MEDICARE, BC ==
[2016-11-03 06:13] LABS: Hemoglobin A1c 6.9 % (4.0-6.0)
[2016-11-03 06:25] LABS: ALT (SGPT) 31 U/L (8-55); AST (SGOT) 20 U/L (5-34); Albumin 3.9 g/dL (3.4-4.8); Alkaline Phosphatase 79 U/L (40-150); Anion Gap 11 mmol/L (10-20); BUN (Urea Nitrogen) 13 mg/dL (8.4-25.7); Bilirubin, Direct 0.2 mg/dL (0.1-0.3); Bilirubin, Total 0.6 mg/dL (0.2-1.2); Calc. Creatinine Clearance 0 mL/min (70-130); Calcium 8.9 mg/dL (7.8-10.44); Carbon Dioxide 28 mmol/L (23-31); Cardiac Risk 3.5 (Less than 4.5); Chloride 101 mmol/L (98-107); Cholesterol 149 mg/dl (< 200 Desired); Estimated GFR-MDRD 79; Glucose 145 mg/dL (83-110); LDL Cholesterol, Calculated 84 mg/dL; Potassium 3.9 mmol/L (3.5-5.1); Protein, Total 6.8 g/dL (5.8-8.1); Sodium 136 mmol/L (136-145); Triglycerides 109 mg/dL (Less than 150)
[2016-11-03 12:40] LABS: HDL Cholesterol 43 mg/dL (>60 Neg Risk)
== END 2016-11-03 05:45 | disposition home or self-care (01) ==
LOC: MADLABBHPM 05:44
PROVIDERS: ATTEND Family Medicine
DX: E78.00 Pure hypercholesterolemia, unspecified (principal); E11.9 Type 2 diabetes mellitus without complications; I10 Essential (primary) hypertension
CPT/HCPCS: 36415; 80048; 80061; 80076; 83036

== ENCOUNTER 2018-03-26 19:38 | Emergency (ER) | payer MEDICARE, BC ==
[~2018-03-26 19:38] MED LIST: Furosemide 40 MG TAB ONE
--- NOTE | 2018-03-26 20:26 | RAD ---
CHEST ONE VIEW: 03/26/18 HISTORY: Cough. COMPARISON: Radiograph 03/20/16. FINDINGS: The heart size is enlarged. Small effusions. Moderate edema. No pneumothorax. No acute osseous abnorm ality. IMPRESSION: Findings suggestive of decompensated CHF including cardiomegaly, effusions and edema. POS: KAREENH
[2018-03-26 20:58] LABS: #Basophils 0.1 thou/uL (0.0-0.2); #Eosinphils 0.4 thou/uL (0.0-0.7); #Lymphocytes 1.7 thou/uL (1.20-3.40); #Monocytes 0.6 thou/uL (0.11-0.59); #Neutrophils 8.6 thou/uL (1.40-6.50); %Basophils 0.8 % (0.0-1.0); %Eosinophils 3.7 % (0.0-10.0); %Lymphocytes 15.2 % (21.0-51.0); %Monocytes 5.2 % (0.0-10.0); %Neutrophils 75.2 % (42.0-75.0); Hemoglobin 12.2 g/dL (14.0-18.0); Mean Corpuscular HGB CONC 32.2 g/dL (32.0-36.0); Mean Corpuscular Hemoglobin 31.2 pg (27.0-31.0); Mean Corpuscular Volume 96.7 fL (78.0-98.0); Mean Platelet Volume 7.5 fL (7.4-10.4); Platelet Count 245 thou/uL (130-400); RBC Distribution Width 12.9 % (11.5-14.5); Red Blood Cell (RBC) Count 3.93 mill/uL (4.70-6.10); White Blood Cell (WBC) Count 11.5 thou/uL (4.8-10.8)
[2018-03-26 21:16] LABS: ALT (SGPT) 36 U/L (8-55); AST (SGOT) 24 U/L (5-34); Albumin 4.1 g/dL (3.4-4.8); Alkaline Phosphatase 89 U/L (40-150); Anion Gap 15 mmol/L (10-20); BUN (Urea Nitrogen) 21 mg/dL (8.4-25.7); Bilirubin, Total 0.6 mg/dL (0.2-1.2); Calc. Creatinine Clearance 0 mL/min (70-130); Carbon Dioxide 27 mmol/L (23-31); Chloride 102 mmol/L (98-107); Estimated GFR-MDRD 68; Globulin 2.6 g/dL (2.4-3.5); Glucose 127 mg/dL (83-110); Potassium 3.8 mmol/L (3.5-5.1); Protein, Total 6.7 g/dL (5.8-8.1); Sodium 140 mmol/L (136-145)
[2018-03-26] MEDS ORDERED: Furosemide 40 MG TAB ONE (21:39)
== END 2018-03-26 22:02 | disposition home or self-care (01) ==
LOC: MADERS 19:38
DX: I11.0 Hypertensive heart disease with heart failure (principal); I50.9 Heart failure, unspecified; I25.2 Old myocardial infarction; E11.9 Type 2 diabetes mellitus without complications; E78.5 Hyperlipidemia, unspecified; Z79.82 Long term (current) use of aspirin; Z79.899 Other long term (current) drug therapy; Z79.84 Long term (current) use of oral hypoglycemic drugs
CPT/HCPCS: 71045; 80053; 83880; 84484; 85025; 87804; 93005

== ENCOUNTER → 2018-04-27 | Emergency (ER) | payer MEDICARE, BC ==
[~2018-04-27] MED LIST changes: +Enoxaparin Sodium 40 MG/0.4 ML SYRINGE ONE; +Enoxaparin Sodium 60 MG/0.6 ML SYRINGE ONE; +Furosemide 20 MG/2 ML VIAL ONE; -Furosemide 40 MG TAB ONE; +Furosemide 40 MG/4 ML VIAL ONE; +Ibuprofen 600 MG TAB ONE; +Nitroglycerin 50 MG/250 ML BOT 250 ML ONE; +Sodium Chloride 0.9% 500 ML ONE; +diphenhydrAMINE 50 MG/ML VIAL ONE
[2018-04-27 14:16] LABS: ALT (SGPT) 34 U/L (8-55); AST (SGOT) 21 U/L (5-34); Alkaline Phosphatase 95 U/L (40-150); Anion Gap 15 mmol/L (10-20); BUN (Urea Nitrogen) 17 mg/dL (8.4-25.7); Bilirubin, Total 0.6 mg/dL (0.2-1.2); Calc. Creatinine Clearance 0 mL/min (70-130); Calcium 8.9 mg/dL (7.8-10.44); Carbon Dioxide 28 mmol/L (23-31); Chloride 103 mmol/L (98-107); Estimated GFR-MDRD 72; Globulin 2.5 g/dL (2.4-3.5); Glucose 168 mg/dL (83-110); Potassium 3.6 mmol/L (3.5-5.1); Protein, Total 6.5 g/dL (5.8-8.1); Sodium 142 mmol/L (136-145)
[2018-04-27 14:32] LABS: Red Blood Cell (RBC) Count 4.03 mill/uL (4.70-6.10); White Blood Cell (WBC) Count 9.3 thou/uL (4.8-10.8)
[2018-04-27 14:33] LABS: #Monocytes 0.5 thou/uL (0.11-0.59); %Eosinophils 3.5 % (0.0-10.0); %Monocytes 5.4 % (0.0-10.0); %Neutrophils 75.2 % (42.0-75.0); Mean Corpuscular HGB CONC 33.5 g/dL (32.0-36.0); Mean Corpuscular Hemoglobin 32.3 pg (27.0-31.0); Mean Corpuscular Volume 96.4 fL (78.0-98.0); Mean Platelet Volume 7.4 fL (7.4-10.4); Platelet Count 237 thou/uL (130-400); RBC Distribution Width 13.6 % (11.5-14.5)
[2018-04-27 14:34] LABS: #Basophils 0.1 thou/uL (0.0-0.2); #Eosinphils 0.3 thou/uL (0.0-0.7); Anisocytosis SLIGHT = 6-15 cells (100X) (0-5/hpf); MDiff Complete? YES; Platelet Morphology Comment Appears Adequate
--- NOTE | 2018-04-27 15:00 | RAD ---
CHEST 1 VIEW: Date: 04/27/18 HISTORY: Dyspnea. COMPARISON: 03/26/18. FINDINGS: Minimal cardiomegaly with bilateral vascular congestions, interstitial edema, and pleural effusions, showing some progression from prior exam of 03/26/18. Postop midline sternotomy. IMPRESSION: Evidence for congestive heart failure with vascular congestion, interstitial edema, pleural effusions , and cardiomegaly, somewhat worse than on prior study. POS: NILDA
[2018-04-29 08:10] LABS: #Lymphocytes 1.4 thou/uL (1.20-3.40)
== END ==
LOC: MADERS 13:13
DX: I11.0 Hypertensive heart disease with heart failure (principal); I50.9 Heart failure, unspecified; E11.9 Type 2 diabetes mellitus without complications; E78.5 Hyperlipidemia, unspecified; Z79.84 Long term (current) use of oral hypoglycemic drugs; Z79.82 Long term (current) use of aspirin; Z79.899 Other long term (current) drug therapy
CPT/HCPCS: 36415; 71045; 80053; 83880; 84484; 85025; 93005; 96372; 96374; 96375; J1200; J1650; J1940; J7050

== ENCOUNTER 2018-06-21 21:51 | Emergency (ER) | payer MEDICARE, BC | END 2018-06-22 00:30 | disposition home or self-care (01) | LOC: MADERS 21:51 | DX: I11.0 Hypertensive heart disease with heart failure (principal); I50.9 Heart failure, unspecified; E11.9 Type 2 diabetes mellitus without complications; I25.2 Old myocardial infarction; E78.5 Hyperlipidemia, unspecified; Z79.899 Other long term (current) drug therapy; Z79.82 Long term (current) use of aspirin | CPT/HCPCS: 99283 ==

== ENCOUNTER 2019-03-07 09:23 | Emergency (ER) | payer MEDICARE, BC ==
[2019-03-07] MEDS ORDERED: Nitroglycerin 2% Ointment 1 INCH/1 GM Packet ONE (10:00)
[2019-03-07] MEDS ORDERED: Famotidine In NaCl 20 mg/50 ml Premix Bag ONE (10:00)
[2019-03-07 10:14] LABS: #Basophils 0.1 thou/uL (0.0-0.2); #Eosinphils 0.4 thou/uL (0.0-0.7); #Lymphocytes 1.4 thou/uL (1.20-3.40); #Monocytes 0.5 thou/uL (0.11-0.59); #Neutrophils 5.6 thou/uL (1.40-6.50); %Basophils 1.5 % (0.0-1.0); %Eosinophils 4.8 % (0.0-10.0); %Lymphocytes 17.9 % (21.0-51.0); %Monocytes 6.2 % (0.0-10.0); %Neutrophils 69.6 % (42.0-75.0); Hemoglobin 13.3 g/dL (14.0-18.0); Mean Corpuscular HGB CONC 30.4 g/dL (32.0-36.0); Mean Corpuscular Hemoglobin 28.9 pg (27.0-31.0); Mean Corpuscular Volume 95.1 fL (78.0-98.0); Mean Platelet Volume 7.6 fL (7.4-10.4); Platelet Count 221 thou/uL (130-400); Red Blood Cell (RBC) Count 4.59 mill/uL (4.70-6.10)
--- NOTE | 2019-03-07 10:20 | RAD ---
Chest AP view INDICATION: Chest pain COMPARISON: April 27, 2018 FINDINGS: Lungs:There is mild perihilar edema Cardiac silhouette:There is stable moderate cardiomegaly Pulmonary vasculature:There is mild pulmonary vascular congestion Pleural spaces:The right costophrenic angle is excluded. The left costophrenic angle is sharp. Upper abdomen:No abnormality seen. Osseous structures: No acute osseous abnormality. Additional findings:Post-CABG changes stable. Dual-lead pacemaker has been intervally placed. IMPRESSION: 1. Findings suspicious for mild CHF. 2. Interval placement of a dual lead pacemaker overlying the left chest wall.
[2019-03-07 10:31] LABS: ALT (SGPT) 21 U/L (8-55); AST (SGOT) 24 U/L (5-34); Alkaline Phosphatase 109 U/L (40-110); Anion Gap 16 mmol/L (10-20); BUN (Urea Nitrogen) 14 mg/dL (8.4-25.7); Bilirubin, Total 0.5 mg/dL (0.2-1.2); Calc. Creatinine Clearance 0 mL/min (70-130); Calcium 8.6 mg/dL (7.8-10.44); Carbon Dioxide 22 mmol/L (23-31); Chloride 105 mmol/L (98-107); Estimated GFR-MDRD 74; Globulin 3.1 g/dL (2.4-3.5); Glucose 142 mg/dL (83-110); Lipase 31 U/L (8-78); Potassium 4.2 mmol/L (3.5-5.1); Protein, Total 7.1 g/dL (5.8-8.1); Sodium 139 mmol/L (136-145)
[2019-03-07] MEDS ORDERED: Nitroglycerin 2% Ointment 1 INCH/1 GM Packet TOP SCH (18:00)
== END 2019-03-07 11:45 | disposition short-term general hospital (02) ==
LOC: MADERS 09:23
DX: R07.9 Chest pain, unspecified (principal); R00.1 Bradycardia, unspecified; I25.10 Atherosclerotic heart disease of native coronary artery without angina pectoris; I25.2 Old myocardial infarction; I10 Essential (primary) hypertension; I50.9 Heart failure, unspecified; E11.9 Type 2 diabetes mellitus without complications; E78.5 Hyperlipidemia, unspecified; E78.00 Pure hypercholesterolemia, unspecified; K21.9 Gastro-esophageal reflux disease without esophagitis; Z95.1 Presence of aortocoronary bypass graft; Z79.84 Long term (current) use of oral hypoglycemic drugs; Z79.02 Long term (current) use of antithrombotics/antiplatelets; Z79.01 Long term (current) use of anticoagulants; Z79.899 Other long term (current) drug therapy
CPT/HCPCS: 36415; 71045; 80053; 83690; 83880; 84484; 85025; 93005; 96365

== ENCOUNTER 2019-05-02 12:16 | Outpatient (CLI) | payer MEDICARE, BC ==
--- NOTE | 2019-05-02 12:50 | RAD ---
Chest 2 views HISTORY: Fall. Injury. FINDINGS: Cardiac silhouette is upper limits of normal in size. Pulmonary vasculature remains upper l imits of normal with widespread reticulonodular interstitial prominence similar in appearance to the previous exam. Mediastinum is midline with postoperative changes and a dual lead left subclavian cardiac electronic device. Mildly displaced fractures involve the lateral aspects of left ribs 4, 5, and 6. No evidence of pneum othorax. There are degenerative changes of the thoracic spine on the lateral view. IMPRESSION: Left lateral mid rib fractures. No evidence of pneumothorax. Chronic-type findings are stable.
--- NOTE | 2019-05-02 12:54 | RAD ---
Left RIBS 3 views HISTORY: Injury. FINDINGS: Mildly displaced fractures involve the lateral aspects of left ribs 4, 5, and 6. No evidence of pneumothorax.
== END 2019-05-02 12:17 | disposition home or self-care (01) ==
LOC: MADRAD 12:16
PROVIDERS: ATTEND Family Medicine
DX: R07.89 Other chest pain (principal); S22.42XA Multiple fractures of ribs, left side, initial encounter for closed fracture
CPT/HCPCS: 71046

== ENCOUNTER 2021-04-09 06:54 | Outpatient (CLI) | payer MEDICARE, BC ==
[2021-04-09 07:32] LABS: ALT (SGPT) 22 U/L (8-55); AST (SGOT) 20 U/L (5-34); Albumin 3.8 g/dL (3.4-4.8); Alkaline Phosphatase 76 U/L (40-110); Anion Gap 15 mmol/L (10-20); BUN (Urea Nitrogen) 24 mg/dL (8.4-25.7); Bilirubin, Total 0.9 mg/dL (0.2-1.2); Calc. Creatinine Clearance 0 mL/min (70-130); Calcium 8.9 mg/dL (7.8-10.44); Carbon Dioxide 26 mmol/L (23-31); Chloride 101 mmol/L (98-107); Globulin 2.7 g/dL (2.4-3.5); Glucose 124 mg/dL (83-110); Potassium 3.5 mmol/L (3.5-5.1); Protein, Total 6.5 g/dL (5.8-8.1); Sodium 138 mmol/L (136-145)
[2021-04-09 08:34] LABS: #Basophils 0.1 thou/uL (0.0-0.2); #Eosinphils 0.4 thou/uL (0.0-0.7); #Monocytes 0.7 thou/uL (0.11-0.59); #Neutrophils 6.8 thou/uL (1.40-6.50); %Basophils 1.2 % (0.0-1.0); %Eosinophils 4.2 % (0.0-10.0); %Lymphocytes 10.7 % (21.0-51.0); %Monocytes 7.8 % (0.0-10.0); %Neutrophils 76.1 % (42.0-75.0); Hemoglobin 9.9 g/dL (14.0-18.0); Mean Corpuscular HGB CONC 30.9 g/dL (32.0-36.0); Mean Corpuscular Volume 90.8 fL (78.0-98.0); Mean Platelet Volume 6.1 fL (7.4-10.4); Platelet Count 297 thou/uL (130-400); RBC Distribution Width 15.6 % (11.5-14.5); Red Blood Cell (RBC) Count 3.53 mill/uL (4.70-6.10)
== END 2021-04-09 06:55 | disposition home or self-care (01) ==
LOC: MADLAB 06:54
PROVIDERS: ATTEND Physician Assistant
DX: R06.00 Dyspnea, unspecified (principal)
CPT/HCPCS: 36415; 80053; 83880; 85025